=== PATIENT | male | born 1945 | race Caucasian/White ===

== ENCOUNTER → 2023-09-06 10:06 | Outpatient (BNVA) | payer MEDICARE, SELFPAY | PROVIDERS: Family Provider Nurse Practitioner Family; PCP Nurse Practitioner Family; Visit Provider Nurse Practitioner | DX: R39.9 Unspecified symptoms and signs involving the genitourinary system (principal); N30.01 Acute cystitis with hematuria | CPT/HCPCS: 81000; 87077; 87086; 87184 ==

== ENCOUNTER → 2023-09-15 09:00 | Outpatient (BNVA) | payer MEDICARE, SELFPAY | PROVIDERS: Family Provider Nurse Practitioner Family; PCP Nurse Practitioner Family; Visit Provider Family Medicine | DX: Z23 Encounter for immunization (principal); M19.031 Primary osteoarthritis, right wrist; M19.032 Primary osteoarthritis, left wrist; E66.9 Obesity, unspecified; M54.50 Low back pain, unspecified; M25.512 Pain in left shoulder; R30.0 Dysuria; Z12.11 Encounter for screening for malignant neoplasm of colon | CPT/HCPCS: 80053; 80061; 85025 ==

== ENCOUNTER → 2023-10-11 11:23 | Outpatient (BNVA) | payer MEDICARE, SELFPAY | PROVIDERS: Family Provider Nurse Practitioner Family; PCP Family Medicine; Visit Provider Family Medicine | DX: R39.9 Unspecified symptoms and signs involving the genitourinary system (principal); R30.0 Dysuria | CPT/HCPCS: 81000; 87086 ==

== ENCOUNTER 2024-02-18 07:25 | Emergency (ER) | payer MEDICARE, SELFPAY ==
[2024-02-18 07:30] VITALS: BP 144/90; PULSE 82; RESP 18; TEMP 36.4; O2SAT 97; BMI 33.0
--- NOTE | 2024-02-18 07:34 | CTR_ITS ---
PROCEDURE INFORMATION: Exam: CT Head Without Contrast Exam date and time: 02/18/2024 8:07 AM Age: 78 years old Clinical indication: Pain; Headache not specified; Additional info: Persistent headache. No history of recent trauma or surgery is provided. TECHNIQUE: Imaging protocol: Computed tomography of the head without contrast. 302image(s) are provided. Radiation optimization: All CT scans at this facility use at least one of these dose optimization techniques: automated exposure control; mA and/or kV adjustment per patient size (includes targeted exams where dose is matched to clinical indication); or iterative reconstruction. Other technique: Axial images are available with sagittal and coronal reconstruction views. Automated dose exposure control is utilized. The DLP is 1119.48. COMPARISON: No relevant prior studies available. RADIATION DOSE METRICS: Total DLP (mGy-cm): 1119.48 FINDINGS: Brain: There are moderate cerebral atrophic changes overall.There are chronic periventricular white matter changes present.There are central lacunar changes demonstrated.Partially empty sella variant is demonstrated.No mass effect or layering hemorrhage is appreciated. Gilliam, white matter differentiation appears maintained. Cerebral ventricles: No hydrocephalus is appreciated. Paranasal sinuses: There is some chronic appearing cortical thickening suggestive of chronic sinusitis related sequela of the right maxillary sinus. No significant mucosal thickening or fluid level at this level is currently appreciated. Mastoid air cells: The mastoid air cells appear well-aerated overall. Auditory system: There appears to be some filling possibly cerumen of the external auditory canals. Orbital cavities: Symmetric appearance of the orbital soft tissues is demonstrated. Bones/joints: Osseous alignment is maintained. No displaced fracture or dislocation is appreciated. 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 Soft tissues: No radiopaque foreign body or subcutaneous emphysema is appreciated. Vasculature: Atherosclerotic vascular changes are demonstrated. CT/CT head wo con* [id number] IMPRESSION: 1. No mass effect, layering hemorrhage or hydocephalus is demostrated. No acute intracranial changes are appreciated. 2. There is evidence of chronic sinusitis related sequela with chronic appearing cortical thickening of the right maxillary sinus included portion. No significant mucosal thickening or layering fluid levels are currently appreciated.
--- NOTE | 2024-02-18 07:35 | ED_ITS ---
HPI - Headache 2 General: Chief Complaint: Headache Stated Complaint: headache Time Seen by Provider: 02/18/24 07:27 Source: patient Mode of arrival: ambulatory History of Present Illness: 78-year-old male presents emergency room with complaint of headache. Is been intermittent for the last 2 weeks no head trauma he is not on any anticoagulants. He was seen in walk-in clinic within the last week and given steroids and ketorolac it improved some but that recurred. He has not had any nausea or vomiting no difficulty with speech swallowing no ataxia. MD elicited complaint: headache Associated symptoms: Deny chest pain, confusion, fever(s) or rash Review of Systems 2 Const: Denies: fever(s) or chills Card: Denies: chest pain Resp: Denies: dyspnea GI: Denies: abdominal pain : Denies: dysuria, urinary frequency or urinary urgency Musc: Denies: neck pain or back pain Skin/Breast: Denies: rash Neuro: Reports: headache(s); Denies: numbness in extremities, weakness in extremities, sensory changes, lack of coordination, difficulty walking, frequent falls, vertigo, confusion or Slurred speech present PFSH ED 2 PFSH: Surgical History History of kidney surgery ruptured kidney repaired Family History Mother Cancer, Onset Age: 85 Colon Father Cancer, Onset Age: 84 Bladder Brother Cancer, Onset Age: 82 lung Other Lung disease Stroke Denies family history of Diabetes CAD (coronary artery disease) Autoimmune disease Bipolar disorder Clotting disorder Depression TIA (transient ischemic attack) Heart disease Hyperthyroidism Hypothyroidism Chronic kidney disease (CKD) Schizophrenia Hypertension Social History Smoking and tobacco/nicotine status: former use of tobacco/nicotine Alcohol intake: never Substance/Drug Use: never Lives independently: Yes Marital status: Number of children: 2 Current occupational status: retired Special sharri needs: No Agree to transfusion: Yes Physical Exam 2 Const: COMMON NORMALS: no acute distress GENERAL APPEARANCE: cooperative and comfortable ORIENTATION/CONSCIOUSNESS: Yes awake, Yes oriented to person, Yes oriented to place and Yes oriented to time HENMT: COMMON NORMALS: normocephalic, atraumatic and hearing grossly normal bilaterally HEAD & SCALP: normocephalic and atraumatic Resp: COMMON NORMALS: normal respiratory effort, No retractions, No use of accessory muscles and clear to auscultation bilaterally AUSCULTATION: clear to auscultation bilaterally Cardio: COMMON NORMALS: regular rate, regular rhythm and No murmurs present (Cardio) RATE: regular rate RHYTHM: regular rhythm GI: COMMON NORMALS: Soft to palpation and No hepatosplenomegaly present A USCULTATION: Yes normoactive bowel sounds PALPATION: Yes Soft to palpation, No Tenderness to palpation present (GI), No Guarding due to palpation present (GI) and Yes No hepatosplenomegaly present Extremity: COMMON NORMALS: normal to inspection, capillary refill normal, no clubbing, cyanosis or edema, no calf tenderness and no pedal edema Neuro: SENSORIUM/ORIENTATION: Yes oriented to person, Yes oriented to place and Yes oriented to time OTHER: Normal neurologic exam with no focal neurologic deficits noted. Reviewed NIH exam done at bedside this did not show abnormality Skin: COMMON NORMALS: no rashes or lesions noted GENERAL SKIN EXAM: no rashes or lesions noted Course 2 Vital Signs: Vital signs: Vital Signs Temperature 97.6 F 02/18/24 07:30 Pulse Rate 72 02/18/24 09:21 Respiratory Rate 15 02/18/24 09:21 Blood Pressure 131/59 02/18/24 09:21 Pulse Oximetry 94 02/18/24 09:21 Oxygen Delivery Me thod Room Air 02/18/24 09:21 MDM - Headache Medical Decision Making CT of the head did not show any acute abnormality. There is some chronic sinus changes but no acute sinusitis. Will discharge patient home can use Phenergan for recurrent headaches he did have good relief with Depacon given here. If symptoms persist follow-up with primary care for possible referral to ENT or neurology as felt appropriate Differential Diagnosis Likely migraine, tension headache and headache Medical Records I reviewed the patient's medical records. Lab Data I reviewed the patient's lab results. 02/18/24 07:48 02/18/24 07:[address] 02/18/24 07:34 IMPRESSION: 1. No mass effect, layering hemorrhage or hydocephalus is demostrated. No acute intracranial changes are appreciated. 2. There is evidence of chronic sinusitis related sequela with chronic appearing cortical thickening of the right maxillary sinus included portion. No significant mucosal thickening or layering fluid levels are currently appreciated. Laboratory Results WBC 10.83 10^3/uL (3.29-11.43) 02/18/24 07:48 RBC 5.40 10^6/uL (3.85-5.65) 02/18/24 07:48 Hgb 15.50 g/dL (11.27-16.99) 02/18/24 07:48 Hct 47.7 % (37-53) 02/18/24 07:48 MCV 88.3 fl (82-101) 02/18/24 07:48 MCH 28.7 pg (27-33) 02/18/24 07:48 MCHC 32.5 g/dL (30-55) 02/18/24 07:48 RDW 12.9 % (12.1-15.1) 02/18/24 07:48 Plt Count 307 10^3/cmm (157-399) 02/18/24 07:48 MPV 9.0 fL (7.4-10.4) 02/18/24 07:48 Neut % (Auto) 69.1 % 02/18/24 07:48 Lymph % (Auto) 14.1 % 02/18/24 07:48 Clark % (Auto) 10.0 % 02/18/24 07:48 Eos % (Auto) 3.0 % 02/18/24 07:48 Baso % (Auto) 0.8 % 02/18/24 07:48 Neut # (Auto) 7.49 10^3/uL (1.8-7.7) 02/18/24 07:48 Lymph # (Auto) 1.5 10^3/uL (0.8-4.8) 02/18/24 07:48 Clark # (Auto) 1.1 10^3/uL (0.2-0.9) H 02/18/24 07:48 Eos # (Auto) 0.3 10^3/uL (0.0-0.8) 02/18/24 07:48 Baso # (Auto) 0.1 10^3/uL (0.0-0.1) 02/18/24 07:48 Nucleated RBC % (auto) 0 % 02/18/24 07:48 Nucleated RBCs # 0.0 /100WBC 02/18/24 07:48 Sodium 138 mmol/L (136-145) 02/18/24 07:48 Potassium 4.2 mmol/L (3.5-5.1) 02/18/24 07:48 Chloride 103 mmol/L (98-107) 02/18/24 07:48 Carbon Dioxide 23 mmol/L (22-29) 02/18/24 07:48 Anion Gap 16.2 (5-19) 02/18/24 07:48 BUN 20 mg/dL (8-23) 02/18/24 07:48 Creatinine 1.1 mg/dL (0.7-1.2) 02/18/24 07:48 GFR Calculation Not Reportable 02/18/24 07:48 Glucose 121 mg/dL (65-115) H 02/18/24 07:48 Calculated Osmolality 290 mOsm/kg (285-295) 02/18/24 07:48 Calcium 9.8 mg/dL (8.5-10.5) 02/18/24 07:48 Total Bilirubin 0.5 mg/dL (0.15-1.2) 02/18/24 07:48 AST 15 U/L (0-40) 02/18/24 07:48 ALT 16 U/L (0-41) 02/18/24 07:48 Alkaline Phosphatase 79 U/L (40-130) 02/18/24 07:48 Total Protein 7.2 g/dL (6.6-8.7) 02/18/24 07:48 Albumin 3.9 g/dL (3.5-5.2) 02/18/24 07:48 Globulin 3.3 g/dL (1.3-4.6) 02/18/24 07:48 All radiology interpretation(s) finalized by discharge Discharge Plan Discharge Patient Disposition: Home Clinical Impression: Headache Condition: Stable Prescriptions: New promethazine 25 mg tablet 25 mg PO Q6H PRN (Reason: headache) Qty: 20 0RF No Action ibuprofen 200 mg Tablet 1,000 mg PO Q6H PRN (Reason: Pain) Discharge Orders: Discharge ED (Routine); Ordered 02/18/24 Ordered By: Axel Bar Referrals: Alejandro Sommers MD [Primary Care Provider] - Discharge Diet: Usual diet Discharge Activity: Resume usual activity Patient Instructions: Opioid Safety, Pain Management Activity Restrictions/Additional Instructions: Thank you for choosing [facility] for your healthcare needs today. Please realize this is an emergency room and that we are providing you with a medical screening exam and this may not be complete and all inclusive of all the testing and or work up that you may need to determine your ailment or severity of your illness. It is very important that you follow up as instructed or that you return to the Emergency Department should you have concerns or if your condition changes or worsens in any way. You were seen today with complaints of a headache. Your CT of your head did not show any acute changes. It did show some chronic sinus changes. If your headaches persist follow-up with your primary care doctor for further evaluation including possible referral to ENT and neurology as felt appropriate Coding Level of Care Code ED Marketing Traffic Coordinator for Vipin Perez
--- NOTE | 2024-02-18 07:40 | ECG_ITS ---
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 Measurements Intervals [place] Rate: 82 P: 46 [place]: 145 QRS: 34 QRSD: 84 T: 40 QT: 355 QTc: 415 Interpretive Statements SINUS RHYTHM No previous ECG available for comparison Electronically Signed On 02-18-2024 15:52:02 CDT by Jeronimo Guido M.D. [id number]
--- NOTE | 2024-02-18 07:49 | PC.PHAR ---
pt states he takes care of his own medications-pt states stop taking mobic 3 weeks ago ext shows last filled mobic 15mg daily filled on 01/06/24 90d/s-pt states started taking 1000mg of ibuprofen and hasnt taken for a week pt states the ibuprofen started to make him sick
[2024-02-18 08:07] LABS: Basophils # 0.1 10^3/uL (0.0-0.1); Basophils % 0.8 %; Eosinophils # 0.3 10^3/uL (0.0-0.8); Hematocrit 47.7 % (37-53); Lymphocytes # 1.5 10^3/uL (0.8-4.8); Lymphocytes % 14.1 %; Mean Corpuscular HGB Conc 32.5 g/dL (30-55); Mean Corpuscular Hemoglobin 28.7 pg (27-33); Mean Corpuscular Volume 88.3 fl (82-101); Monocytes # 1.1 10^3/uL (0.2-0.9); Neutrophils # 7.49 10^3/uL (1.8-7.7); Neutrophils % 69.1 %; Nucleated Red Blood Cells % 0 %; Platelet Count 307 10^3/cmm (157-399); Red Cell Distribution Width 12.9 % (12.1-15.1); White Blood Count 10.83 10^3/uL (3.29-11.43)
[2024-02-18 08:23] LABS: Alanine Aminotransferase 16 U/L (0-41); Albumin Level 3.9 g/dL (3.5-5.2); Alkaline Phosphatase 79 U/L (40-130); Anion Gap 16.2 (5-19); Aspartate Amino Transferase 15 U/L (0-40); Blood Urea Nitrogen 20 mg/dL (8-23); Calcium 9.8 mg/dL (8.5-10.5); Carbon Dioxide 23 mmol/L (22-29); Chloride 103 mmol/L (98-107); Creatinine Clr Calc Pharmacy 62.9844; Globulin 3.3 g/dL (1.3-4.6); Glucose 121 mg/dL (65-115); Osmolality Calculated 290 mOsm/kg (285-295); Potassium 4.2 mmol/L (3.5-5.1); Sodium 138 mmol/L (136-145); Total Bilirubin 0.5 mg/dL (0.15-1.2); Total Protein 7.2 g/dL (6.6-8.7)
[2024-02-18] MEDS: valproic acid inj 500 MG in sodium chloride 0.9% 50 ML 55 MG IV (08:24)
[2024-02-18 08:26] VITALS: BP 144/90; PULSE 78; O2SAT 98
[2024-02-18] MEDS: ketorolac 30 mg/mL INJ 15 MG IVP (09:19)
[2024-02-18] MEDS: metoclopramide 5 mg/mL SDV 2 mL 10 MG IVP (09:20)
[2024-02-18 09:21] VITALS: BP 131/59; PULSE 72; RESP 15; O2SAT 94
[2024-02-18 11:10] VITALS: BP 137/77; PULSE 74; O2SAT 94
== END 2024-02-18 11:11 | disposition home or self-care (01) ==
PROVIDERS: Emergency Provider Family Medicine; PCP Family Medicine
DX: R51.9 Headache, unspecified (principal); Z87.891 Personal history of nicotine dependence
CPT/HCPCS: 70450; 80053; 85025; 93005; 96365; 96375; 99285; J1885; J2765; J3490

== ENCOUNTER 2024-05-16 16:32 | Emergency (ER) | payer MEDICARE, SELFPAY ==
--- NOTE | 2024-05-16 16:37 | CTR_ITS ---
PROCEDURE INFORMATION: Exam: CT Head Without Contrast Exam date and time: 05/16/2024 4:31 PM Age: 78 years old Clinical indication: Stroke-like symptoms; Other: See below; Additional info: Symptoms of acute stroke TECHNIQUE: Imaging protocol: Computed tomography of the head without contrast. Radiation optimization: All CT scans at this facility use at least one of these dose optimization techniques: automated exposure control; mA and/or kV adjustment per patient size (includes targeted exams where dose is matched to clinical indication); or iterative reconstruction. Other technique: STROKE PROTOCOL was implemented. COMPARISON: CT head wo con* [id number] 02/18/2024 8:07 AM RADIATION DOSE METRICS: Total DLP (mGy-cm): 1083 FINDINGS: Brain: No hemorrhage. No edema. Moderate diffuse cerebral atrophy and mild sequela of chronic small vessel ischemic disease. No mass effect. Cerebral ventricles: No ventriculomegaly. Paranasal sinuses: Visualized sinuses are unremarkable. No fluid levels. Mastoid air cells: Visualized mastoid air cells are well aerated. Bones: Unremarkable. No acute fracture. Soft tissues: Unremarkable. CT/CT head thrombolytic [id number] IMPRESSION: No acute intracranial abnormality. ASSESSMENT: ASPECTS ([place] Stroke Program Early CT Score) is 10.
[2024-05-16 16:44] VITALS: BP 174/89; PULSE 72; RESP 18; TEMP 36.7; O2SAT 96; BMI 33.6
--- NOTE | 2024-05-16 16:44 | ED_ITS ---
HPI - Neuro Symptoms/Deficit 2 General: Chief Complaint: Neuro Symptoms/Deficit Stated Complaint: Stroke Time Seen by Provider: 05/16/24 16:37 Source: patient and EMS Limitations: no limitations History of Present Illness: 78-year-old male has had a history of he adaches in past states that today at 330 started having a headache states that he is having difficulty swallowing along with difficulty walking with right-sided numbness and weakness. He states this lasted roughly an hour called EMS and his symptoms have since completely resolved. Denies any numbness weakness he is ambulatory here states his headaches improved as well. Denies any fevers. Associated symptoms: Reports headache(s); Deny chest pain, nausea or vomiting Review of Systems 2 Const: Denies: fever(s), chills, body aches or change in appetite Eyes: Denies: blurry vision or eye discomfort ENMT: Denies: throat pain or dental pain Card: Denies: chest pain Resp: Denies: dyspnea GI: Denies: abdominal pain, nausea, vomiting or diarrhea Musc: Denies: neck pain or back pain Skin/Breast: Denies: rash Neuro: Reports: headache(s), numbness in extremities and weakness in extremities PFSH ED 2 PFSH: Surgical History History of kidney surgery ruptured kidney repaired Family History Mother Cancer, Onset Age: 85 Colon Father Cancer, Onset Age: 84 Bladder Brother Cancer, Onset Age: 82 lung Other Lung disease Stroke Denies family history of Diabetes CAD (coronary artery disease) Autoimmune disease Bipolar disorder Clotting disorder Depression TIA (transient ischemic attack) Heart disease Hyperthyroidism Hypothyroidism Chronic kidney disease (CKD) Schizophrenia Hypertension Social History Smoking and tobacco/nicotine status: former use of tobacco/nicotine Alcohol intake: never Substance/Drug Use: never Lives independently: Yes Marital status: Number of children: 2 Current occupational status: retired Special sharri needs: No Agree to transfusion: Yes NIH stroke score 2 NIHSS: Level Of Consciousness - 1a: 0 Level Of Consciousness Questions - 1b: Both Correct Level Of Consciousness Commands - 1c: Both Correct Best Gaze - 2: Normal Visual Garcia - 3: No Visual Loss Facial Palsy - 4: N ormal Motor Arm Right - 5: No Drift Motor Arm Left - 5: No Drift Motor Leg Right - 6: No Drift Motor Leg Left - 6: No Drift Limb Ataxia - 7: A bsent Sensory - 8: Normal Best Language - 9: No Aphasia Dysarthia - 10: Normal Extinction And Inattention - 11: 0 Score: Total Score: 0 Physical Exam 2 Const: COMMON NORMALS: no acute distress, patient oriented x3 and healthy appearing HENMT: COMMON NORMALS: normocephalic and atraumatic HEAD & SCALP: n ormocephalic and atraumatic Eye: COMMON NORMALS: Equal, round and reactive pupils present and EOMs intact bilaterally PUPIL: Yes Equal, round and reactive pupils present Neck/C-Spine: COMMON NORMALS: full ROM and supple Chest: COMMONS NORMALS: normal inspection of the chest and normal palpation of entire chest wall Resp: COMMON NORMALS: normal respiratory effort, No retractions, No use of accessory muscles and clear to auscultation bilaterally AUSCULTATION: clear to auscultation bilaterally Cardio: COMMON NORMALS: regular rate, regular rhythm and No murmurs present (Cardio) RATE: regular rate RHYTHM: regular rhythm GI: COMMON NORMALS: Normal to inspection, nondistended, normoactive bowel sounds present, Soft to palpation, non-tender and no masses PALPATION: Yes Soft to palpation Extremity: COMMON NORMALS: normal to inspection and full ROM Neuro: COMMON NORMALS: patient oriented x3, moves all extremities and no focal motor deficits CRANIAL NERVES: Yes CN normal except as noted SPEECH: s peech normal GAIT: Yes Normal gait present MOTOR EXAM: 5/5 motor strength present throughout Psych: COMMON NORMALS: mental status grossly normal, Normal thought process present, cooperative and speech normal SPEECH: Yes normal speech THOUGHT PROCESS: Normal thought process present Skin: COMMON NORMALS: no rashes or lesions noted and no wounds GENERAL SKIN EXAM: no rashes or lesions noted Course 2 Vital Signs: Vital signs: Vital Signs Temperature 98.1 F 05/16/24 16:44 Pulse Rate 76 05/16/24 17:42 Respiratory Rate 18 05/16/24 16:44 Blood Pressure 151/95 05/16/24 17:42 Pulse Oximetry 97 05/16/24 17:42 Oxygen Delivery Me thod Room Air 05/16/24 16:44 MDM - Neuro Symptoms/Deficit Medical Decision Making Patient presents here with symptoms consistent with a TIA symptoms of all resolved I did recommend admission to him he states he feels improved and does not want to stay. I informed him that I would like to admit him and work him up further he is refusing. Will discharge at this time we will start him on a baby aspirin and statin will involve neurology informed if he has any more symptoms he is to return immediately he understands agrees to plan Medical Records I reviewed the patient's medical records. Lab Data I reviewed the patient's lab results. 05/16/24 16:41 05/16/24 16:[address] 05/16/24 16:37 IMPRESSION: No acute intracranial abnormality. ASSESSMENT: ASPECTS ([place] Stroke Program Early CT Score) is 10. Laboratory Results WBC 12.70 10^3/uL (3.29-11.43) H 05/16/24 16:41 RBC 5.02 10^6/uL (3.85-5.65) 05/16/24 16:41 Hgb 14.70 g/dL (11.27-16.99) 05/16/24 16:41 Hct 44.9 % (37-53) 05/16/24 16:41 MCV 89.4 fl (82-101) 05/16/24 16:41 MCH 29.3 pg (27-33) 05/16/24 16:41 MCHC 32.7 g/dL (30-55) 05/16/24 16:41 RDW 12.9 % (12.1-15.1) 05/16/24 16:41 Plt Count 289 10^3/cmm (157-399) 05/16/24 16:41 MPV 8.9 fL (7.4-10.4) 05/16/24 16:41 Neut % (Auto) 82.5 % 05/16/24 16:41 Lymph % (Auto) 7.6 % 05/16/24 16:41 [place] % (Auto) 6.0 % 05/16/24 16:41 Eos % (Auto) 0.3 % 05/16/24 16:41 Baso % (Auto) 0.5 % 05/16/24 16:41 Neut # (Auto) 10.48 10^3/uL (1.8-7.7) H 05/16/24 16:41 Lymph # (Auto) 1.0 10^3/uL (0.8-4.8) 05/16/24 16:41 [place] # (Auto) 0.8 10^3/uL (0.2-0.9) 05/16/24 16:41 Eos # (Auto) 0.0 10^3/uL (0.0-0.8) 05/16/24 16:41 Baso # (Auto) 0.1 10^3/uL (0.0-0.1) 05/16/24 16:41 Nucleated RBC % (auto) 0 % 05/16/24 16:41 Nucleated RBCs # 0.0 /100WBC 05/16/24 16:41 PT 13.40 SECONDS (12.1-14.9) 05/16/24 16:41 INR 0.99 (0.8-1.2) 05/16/24 16:41 APTT 23.7 SECONDS (23.9-36.7) L 05/16/24 16:41 Sodium 139 mmol/L (136-145) 05/16/24 16:41 Potassium 4.8 mmol/L (3.5-5.1) 05/16/24 16:41 Chloride 105 mmol/L (98-107) 05/16/24 16:41 Carbon Dioxide 25 mmol/L (22-29) 05/16/24 16:41 Anion Gap 13.8 (5-19) 05/16/24 16:41 BUN 22 mg/dL (8-23) 05/16/24 16:41 Creatinine 1.2 mg/dL (0.7-1.2) 05/16/24 16:41 GFR Calculation Not Reportable 05/16/24 16:41 Glucose 147 mg/dL (65-115) H 05/16/24 16:41 POC Glucose 140 mg/dL (70-110) H 05/16/24 17:11 Calculated Osmolality 294 mOsm/kg (285-295) 05/16/24 16:41 Calcium 9.9 mg/dL (8.5-10.5) 05/16/24 16:41 Total Bilirubin 0.2 mg/dL (0.15-1.2) 05/16/24 16:41 AST 16 U/L (0-40) 05/16/24 16:41 ALT 19 U/L (0-41) 05/16/24 16:41 Alkaline Phosphatase 74 U/L (40-130) 05/16/24 16:41 Total Protein 7.4 g/dL (6.6-8.7) 05/16/24 16:41 Albumin 4.0 g/dL (3.5-5.2) 05/16/24 16:41 Globulin 3.4 g/dL (1.3-4.6) 05/16/24 16:41 Urine Color Yellow (Yellow) 05/16/24 17:11 Urine Appearance Clear (CLEAR) 05/16/24 17:11 Urine pH 6 (5-7) 05/16/24 17:11 Ur Specific [place] 1.015 (1.005-1.030) 05/16/24 17:11 Urine Protein Neg (Negative) 05/16/24 17:11 Urine Glucose (UA) Norm (Normal) 05/16/24 17:11 Urine Ketones Negative (Negative) 05/16/24 17:11 Urine Blood Neg (Negative) 05/16/24 17:11 Urine Nitrate Negative (Negative) 05/16/24 17:11 Urine Bilirubin Neg (Negative) 05/16/24 17:11 Urine Urobilinogen Norm mg/dL (Negative) 05/16/24 17:11 Ur Leukocyte Esterase Negative (Negative) 05/16/24 17:11 Urine Opiates Screen Negative ng/mL (Negative) 05/16/24 17:11 Ur Barbiturates Screen Negative ng/mL (Negative) 05/16/24 17:11 Ur Phencyclidine Scrn Negative ng/mL (Negative) 05/16/24 17:11 Ur Amphetamines Screen Negative ng/mL (Negative) 05/16/24 17:11 U Benzodiazepines Scrn Negative ng/mL (Negative) 05/16/24 17:11 Urine Cocaine Screen Negative ng/mL (Negative) 05/16/24 17:11 U Marijuana (THC) Screen Negative ng/mL (Negative) 05/16/24 17:11 All radiology interpretation(s) finalized by discharge EKG Data EKG 1: I personally reviewed and interpreted this EKG as follows: EKG interpretation date: 05/16/24 EKG interpretation time: 16:46 Interpretation: nsr hr [address] or t wave abnormalities qrs 82 qtc 396 Discharge Plan Discharge Patient Disposition: Home Clinical Impression: Transient cerebral ischemia, Headache Condition: Stable Prescriptions: New aspirin 81 mg capsule 81 mg PO DAILY Qty: 30 0RF atorvastatin 20 mg tablet 20 mg PO DAILY Qty: 30 0RF No Action sumatriptan succinate 50 mg tablet See Rx Instructions PO .COMPLEX Qty: 10 0RF Rx Instructions: take 1 tab at onset of headache; if no relief may repeat 1 tab after at least 2 hrs; max = 4 tabs/24 hr PO ibuprofen 200 mg Tablet 1,000 mg PO Q6H PRN (Reason: Pain) promethazine 25 mg tablet 25 mg PO Q6H PRN (Reason: headache) Qty: 20 0RF Discharge Orders: Discharge ED (Routine); Ordered 05/16/24 Ordered By: Kenney Nelson Referrals: Katarina Shen MD [Physician] - 1-3 days Alejandro Sommers MD [Primary Care Provider] - Discharge Diet: Advance as tolerated Discharge Activity: Resume usual activity Patient Instructions: Transient Ischemic Attack (ED) Coding Level of Care Code ED Entry Engineer for Vipin Perez
--- NOTE | 2024-05-16 16:46 | ECG_ITS ---
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 Measurements Intervals [place] Rate: 76 P: 55 CT: 147 QRS: 51 QRSD: 82 T: 57 QT: 365 QTc: 413 Interpretive Statements SINUS RHYTHM Compared to ECG 02/18/2024 07:40:04 No significant changes Electronically Signed On 05-18-2024 13:34:03 CDT by Issac Boo M.D. [id number]
[2024-05-16 16:48] LABS: Glucose Point of Care 140 mg/dL (70-110)
[2024-05-16 16:53] LABS: Basophils # 0.1 10^3/uL (0.0-0.1); Basophils % 0.5 %; Eosinophils % 0.3 %; Hematocrit 44.9 % (37-53); Lymphocytes % 7.6 %; Mean Corpuscular HGB Conc 32.7 g/dL (30-55); Mean Corpuscular Hemoglobin 29.3 pg (27-33); Mean Corpuscular Volume 89.4 fl (82-101); Mean Platelet Volume 8.9 fL (7.4-10.4); Monocytes # 0.8 10^3/uL (0.2-0.9); Neutrophils # 10.48 10^3/uL (1.8-7.7); Neutrophils % 82.5 %; Nucleated Red Blood Cells % 0 %; Platelet Count 289 10^3/cmm (157-399); Red Blood Count 5.02 10^6/uL (3.85-5.65); Red Cell Distribution Width 12.9 % (12.1-15.1)
[2024-05-16 17:08] LABS: INR 0.99 (0.8-1.2); Partial Thromboplastin Time 23.7 SECONDS (23.9-36.7)
[2024-05-16 17:10] LABS: Alanine Aminotransferase 19 U/L (0-41); Alkaline Phosphatase 74 U/L (40-130); Anion Gap 13.8 (5-19); Aspartate Amino Transferase 16 U/L (0-40); Blood Urea Nitrogen 22 mg/dL (8-23); Calcium 9.9 mg/dL (8.5-10.5); Carbon Dioxide 25 mmol/L (22-29); Chloride 105 mmol/L (98-107); Creatinine Clr Calc Pharmacy 58.2732; Globulin 3.4 g/dL (1.3-4.6); Glucose 147 mg/dL (65-115); Osmolality Calculated 294 mOsm/kg (285-295); Potassium 4.8 mmol/L (3.5-5.1); Sodium 139 mmol/L (136-145); Total Bilirubin 0.2 mg/dL (0.15-1.2); Total Protein 7.4 g/dL (6.6-8.7)
[2024-05-16 17:14] LABS: Glucose Point of Care 140 mg/dL (70-110)
[2024-05-16 17:28] LABS: Add Urine Microscopic? NO; Charge for UA Resulting for Rev
[2024-05-16 17:39] LABS: Bilirubin Urine Neg (Negative); Blood Urine Neg (Negative); Glucose Urine UA Norm (Normal); Ketones Urine Negative (Negative); Leukocyte Esterase Urine Negative (Negative); Nitrate Urine Negative (Negative); Protein Urine Neg (Negative); Specific Gravity, Urine 1.015 (1.005-1.030); Urine Appearance Clear (CLEAR); Urine Color Yellow (Yellow); Urobilinogen Urine Norm (Negative); pH Urine 6 (5-7)
[2024-05-16 17:42] VITALS: BP 151/95; PULSE 76; O2SAT 97
[2024-05-16 17:47] LABS: Amphetamines Screen Urine Negative (Negative); Barbiturates Screen Urine Negative (Negative); Benzodiazepines Screen Urine Negative (Negative); Cocaine Screen Urine Negative (Negative); Opiate Screen Urine Negative (Negative); PCP Screen Urine Negative (Negative); THC Screen Urine Negative (Negative)
--- NOTE | 2024-05-16 17:59 | PC.SOCIAL ---
Neuro F/u Referral request sent to neurology for appt.
[2024-05-16 18:01] VITALS: BP 151/95; PULSE 76; O2SAT 97
== END 2024-05-16 18:02 | disposition home or self-care (01) ==
PROVIDERS: Emergency Provider Emergency Medicine; PCP Family Medicine
DX: G45.9 Transient cerebral ischemic attack, unspecified (principal); R51.9 Headache, unspecified; Z87.891 Personal history of nicotine dependence
CPT/HCPCS: 36415; 36416; 70450; 80053; 80306; 81003; 82962; 85025; 85610; 85730; 93005; 99284

== ENCOUNTER → 2024-06-05 07:41 | Outpatient (BNVA) | payer MEDICARE, SELFPAY | PROVIDERS: PCP Family Medicine; Visit Provider Psychiatry & Neurology Neurology | DX: G45.9 Transient cerebral ischemic attack, unspecified (principal); G43.909 Migraine, unspecified, not intractable, without status migrainosus; E55.9 Vitamin D deficiency, unspecified; R53.83 Other fatigue; G45.1 Carotid artery syndrome (hemispheric); R53.1 Weakness | CPT/HCPCS: 36415; 82306; 84439; 84443; 84481; 86160; 86162; 86235; 86255; 86376; 99203 ==

== ENCOUNTER 2024-06-17 11:45 | Observation (INO) | payer MEDICARE, SELFPAY ==
[2024-06-17] VITALS (7 sets, daily range): BP systolic 134–149; BP diastolic 66–80; PULSE 72–81; RESP 17–18; TEMP 36.7–36.9; O2SAT 94–98
--- NOTE | 2024-06-17 14:06 | P.HP_ITS ---
Providers/Chief Complaint Admitting Physician: Andra Maradiaga MD Primary Care Provider: Alejandro Sommers MD History of Present Illness Jagdish Bush is a 78 year old male with history of TIA who recently saw neurology on 06/05. He complained of occipital Headaches for last 2 months which have not resolved. He takes a lot of ibuprofen when he has headaches. He is also had history of bilateral cataract surgery in the past. He was recommended to have head MRI to assess for stroke, carotid Dopplers, echo and vasculitis workup with thyroid profile vitamin D. He was asked to discontinue NSAIDs, ibuprofen and placed on aspirin and Crestor. Unsure if patient has had workup done so far or not. Today patient presents to our hospital from [facility] for similar complaints of right-sided numbness of face and weakness with speech difficulty and blurred vision. By the time he has been transferred here all the symptoms have resolved and he is back to his normal self. Neurological exam is normal at this time. He is a poor historian. He does not know his home medications but does say he takes a baby aspirin?cholesterol tablet. He does not have any complaints at this time. He has been transferred here for TIA workup. Denies smoking alcohol or other drug use Medications/Allergies Home Medications Medication Instructions Recorded Confirmed Last Taken Type promethazine 25 mg tablet 25 mg PO Q6H PRN headache #20 tabs 02/18/24 06/05/24 Unknown Rx aspirin 81 mg capsule 81 mg PO DAILY #30 caps 05/16/24 06/05/24 Unknown Rx atorvastatin 20 mg tablet 20 mg PO DAILY #30 tabs 05/16/24 06/05/24 Unknown Rx rosuvastatin 10 mg tablet 10 mg PO DAILY #30 tabs 06/05/24 06/05/24 Unknown Rx cholecalciferol (vitamin D3) 1,250 50,000 unit PO ONCE #14 caps 06/08/24 Unknown Rx mcg (50,000 unit) capsule Allergies Allergy/AdvReac Type Severity Reaction Status Date / Time No Known Allergies Allergy Verified 06/05/24 09:00 PFSH Acute PFSH: Surgical History History of kidney surgery ruptured kidney repaired Family History Mother Cancer, Onset Age: 85 Colon Father Cancer, Onset Age: 84 Bladder Brother Cancer, Onset Age: 82 lung Other Lung disease Stroke Denies family history of Diabetes CAD (coronary artery disease) Autoimmune disease Bipolar disorder Clotting disorder Depression TIA (transient ischemic attack) Heart disease Hyperthyroidism Hypothyroidism Chronic kidney disease (CKD) Schizophrenia Hypertension Social History Smoking and tobacco/nicotine status: former use of tobacco/nicotine Alcohol intake: never Substance/Drug Use: never Lives independently: Yes Marital status: Number of children: 2 Current occupational status: retired Special sharri needs: No Agree to transfusion: Yes Vitals/I&O/Wt Last Vital Signs Temp 98.0 F 06/17/24 12:30 Pulse 72 06/17/24 12:30 Resp 17 06/17/24 12:30 BP 138/80 06/17/24 12:30 Pulse Ox 98 06/17/24 12:30 O2 Del Method Room Air 06/17/24 12:30 06/16/24 06/17/24 06/17/24 22:59 06:59 14:59 Intake Total 220 / 220 Balance 220 / 220 Weight last 48 hrs Weight 98.94 kg Physical Exam Narrative: General: Alert oriented x3, patient seen sitting up in bed about to eat lunch HEENT: Normocephalic, atraumatic, EOMI, breathing room air Cardio: Regular rate rhythm, normal S1-S2, no murmurs Respiratory: Good bilateral air entry, no wheezes no rhonchi appreciated GI: Abdomen soft, nontender, nondistended, bowel sounds + Extremities: no edema, no cyanosis Neuro: non-focal A&P Assessment and plan (1) Obesity (BMI 30.0-34.9): (2) TIA involving left internal carotid artery: (3) Right sided weakness: Plan #TIA, reccurant #Non-compliant #Hx of headaches as per chart -Head CT was negative today at [facility]. Patient states that he had a test where he was given a medication into his vein which I assume was probably contrast CTA head and neck. No records have been sent over from [facility] at this time and have asked nursing staff to request for those.Pt does deny a headache today. ? Will check MRI in a.m. ? Placed on aspirin 81 daily, Plavix daily, atorvastatin 80 ? Check hemoglobin A1c, TSH, vasculitis workup as per neurorecommendations. ? Patient seems to be noncompliant as he has not had any testing done that was recommended by neuro 2 weeks ago. ? At this time he is has a nonfocal neuroexam. ? Check nursing dysphagia screen, PT -Placed on telemetry. Patient may benefit from an event monitor at discharge. -Check echo Full code Due to prophylaxis: SCDs I would hold off on any pharmacological prophylaxis till initial labs come back Check baseline labs CBC, CMP, magnesium. No records were sent from [facility]. Attestations Medical Necessity Statement*: Observation admission for TIA workup. Diagnoses Obesity (BMI 30.0-34.9) E66.9 TIA involving left internal carotid artery G45.1 Right sided weakness R53.1
--- NOTE | 2024-06-17 14:12 | MRR_ITS ---
PROCEDURE INFORMATION: Exam: MR Head Without Contrast Exam date and time: 06/17/2024 3:18 PM Age: 78 years old Clinical indication: Pain; Numbness / parasthesia and weakness, facial; Headache not specified; Patient HX: Headache x 2 weeks, right facial numbness; Additional info: TIA TECHNIQUE: Imaging protocol: Magnetic resonance imaging of the head without contrast. COMPARISON: CT head thrombolytic [id number] 05/16/2024 4:31 PM FINDINGS: Brain: No acute infarct. No intracranial hemorrhage. No significant white matter disease. Cerebral ventricles: The ventricles and sulci are prominent in size compatible with mild atrophy. Bones: Unremarkable. Paranasal sinuses: Mild mucoperiosteal thickening is seen involving the bilateral maxillary sinuses. Mastoid air cells: Normal as visualized. No mastoid effusion. Orbital cavities: Orbits and globes are intact. Soft tissues: Unremarkable. MR/MR head wo con* [id number] IMPRESSION: No acute infarct.
--- NOTE | 2024-06-17 14:12 | USCV_ITS ---
Jagdish Bush Age: 78 Gender: M : 1945 Exam Date: 06/17/2024 16:21 Ordering Phys: Andra Maradiaga MD Technologist: Luis Manuel Fitch Exam Location: [facility] Indication: TIA BP: 138 / 80 HR: 71 Rhythm: Sinus Technical Quality: Suboptimal MEASUREMENTS (Male / Female) Normal Values 2D ECHO LV Diastolic Diameter PLAX 5.6 cm 4.2 - 5.9 / 3.9 - 5.3 cm IVS Diastolic Thickness 1.3 cm 0.6 - 1.0 / 0.6 - 0.9 cm IVS Systolic Thickness 1.5 cm LVPW Diastolic Thickness 1.6 cm 0.6 - 1.0 / 0.6 - 0.9 cm LVPW Systolic Thickness 1.9 cm LVOT Diameter 2.1 cm LV Ejection Fraction 2D Teich 66.8 % LV Ejection Fraction MOD 4C 71.4 % LV Ejection Fraction MOD 2C 54.0 % LV Ejection Fraction 2C AL 55.1 % LA Diameter 3.9 cm RA Systolic Volume 4C AL 55.6 ml RA Systolic Volume 4C MOD 55.5 ml LA Sys Volume AL 57.2 cm cubed LA Sys Volume Index AL 26.0 cm cubed/m squared Aorta at Sinotubular Diameter 2.3 cm IVC Diameter 2.0 cm M-MODE LA Ao Ratio MM 1.7 AV Cusp Separation MM 2.0 cm DOPPLER AV Peak Velocity 118.3 cm/s LVOT Peak Velocity 92.0 cm/s AV Area Cont Eq vti 2.6 cm squared AV Area Cont Eq pk 2.6 cm squared MV Peak Velocity 94.0 cm/s MV Area PHT 4.7 cm squared Mitral E to A Ratio 0.8 TV Peak Velocity 165.0 cm/s TR Peak Velocity 177.0 cm/s TR Peak Gradient 12.5 mmHg TR Mean Velocity 125.0 cm/s TR Mean Gradient 7.4 mmHg TR Velocity Time Integral 31.2 cm PV Peak Velocity 106.7 cm/s RV Ejection Time 0.3 s FINDINGS Left Ventricle Normal left ventricular size, systolic function and wall thickness, with no regional wall motion abnormalities. Grade I/IV diastolic dysfunction (abnormal relaxation filling pattern), normal to mildly elevated filling pressures. Left ventricular ejection fraction is estimated at 60 %. Right Ventricle Normal right ventricular size and systolic function. Right Atrium The right atrium is normal in size. Left Atrium The left atrium is normal in size. Mitral Valve Structurally normal mitral valve. Trace mitral valve regurgitation. Aortic Valve Structurally normal trileaflet aortic valve. No aortic valve stenosis. Trace aortic valve regurgitation. Tricuspid Valve Structurally normal tricuspid valve. No tricuspid valve regurgitation. Pulmonic Valve Pulmonic valve not well visualized. Mild pulmonary valve regurgitation. Pericardium Normal pericardium without effusion. Aorta Normal ascending aorta dimension. IVC Inferior vena cava not visualized. CONCLUSIONS Normal left ventricular size, systolic function and wall thickness, with no regional wall motion abnormalities. Grade I/IV diastolic dysfunction (abnormal relaxation filling pattern), normal to mildly elevated filling pressures. Left ventricular ejection fraction is estimated at 60 %. Structurally normal mitral valve. Trace mitral valve regurgitation. Structurally normal trileaflet aortic valve. No aortic valve stenosis. Trace aortic valve regurgitation. There are no prior echocardiogram studies to compare. Dr. Issac Boo MD (Electronically Signed) Final Date: 18 June 2024 07:53 S
[2024-06-17 14:40] LABS: Basophils % 0.5 %; Eosinophils # 0.3 10^3/uL (0.0-0.8); Eosinophils % 3.6 %; Lymphocytes # 1.1 10^3/uL (0.8-4.8); Lymphocytes % 14.1 %; Mean Corpuscular HGB Conc 32.4 g/dL (30-55); Mean Corpuscular Hemoglobin 29.1 pg (27-33); Mean Corpuscular Volume 89.6 fl (82-101); Mean Platelet Volume 9.3 fL (7.4-10.4); Monocytes # 0.7 10^3/uL (0.2-0.9); Neutrophils # 5.53 10^3/uL (1.8-7.7); Neutrophils % 71.4 %; Nucleated Red Blood Cells % 0 %; Platelet Count 201 10^3/cmm (157-399); Red Blood Count 5.02 10^6/uL (3.85-5.65); Red Cell Distribution Width 13.4 % (12.1-15.1); White Blood Count 7.75 10^3/uL (3.29-11.43)
[2024-06-17 15:09] LABS: Estmated Average Glucose 105; Hemoglobin A1C 5.3 % (4.0-6.0)
[2024-06-17 15:20] LABS: Alanine Aminotransferase 15 U/L (0-41); Albumin Level 3.6 g/dL (3.5-5.2); Alkaline Phosphatase 62 U/L (40-130); Aspartate Amino Transferase 12 U/L (0-40); Blood Urea Nitrogen 18 mg/dL (8-23); Calcium 9.5 mg/dL (8.5-10.5); Carbon Dioxide 23 mmol/L (22-29); Chloride 105 mmol/L (98-107); Chol HDL Ratio 1.84 mg/dL (1.0-5.00); Cholesterol 83 mg/dL (0-200); Globulin 2.8 g/dL (1.3-4.6); Glucose 131 mg/dL (65-115); HDL Cholesterol 45 mg/dL (60-100); LDL Cholesterol Calculated 25 mg/dL (50-129); Magnesium 1.9 mg/dL (1.7-2.3); Osmolality Calculated 294 mOsm/kg (285-295); Sodium 140 mmol/L (136-145); Thyroid Stimulating Hormone 0.69 uIU/mL (0.27-4.20); Total Bilirubin 0.6 mg/dL (0.15-1.2); Total Protein 6.4 g/dL (6.6-8.7); Triglycerides 65 mg/dL (0-150); VLDL Cholestrol Calculation 13 mg/dL (0-30); Vitamin B12 413 pg/mL (232-1245)
--- NOTE | 2024-06-17 15:44 | PC.NURSE ---
pt refused scd's
[2024-06-17] MEDS: atorvastatin 40 mg Tablet 80 MG PO (20:31)
[2024-06-18] MEDS: heparin 5,000 unit/mL INJ 1 mL 5000 UNIT SUBCUT ×2 (01:59→14:28)
[2024-06-18 04:00] VITALS: BP 112/72; PULSE 80; RESP 16; TEMP 36.4; O2SAT 98
[2024-06-18 04:49] LABS: Basophils # 0.1 10^3/uL (0.0-0.1); Basophils % 0.9 %; Eosinophils # 0.4 10^3/uL (0.0-0.8); Eosinophils % 4.6 %; Hematocrit 44.8 % (37-53); Lymphocytes # 1.3 10^3/uL (0.8-4.8); Lymphocytes % 14.6 %; Mean Corpuscular HGB Conc 32.1 g/dL (30-55); Mean Corpuscular Hemoglobin 29.6 pg (27-33); Monocytes # 0.9 10^3/uL (0.2-0.9); Monocytes % 10.1 %; Neutrophils # 6.24 10^3/uL (1.8-7.7); Neutrophils % 68.2 %; Nucleated Red Blood Cells % 0 %; Platelet Count 198 10^3/cmm (157-399); Red Blood Count 4.87 10^6/uL (3.85-5.65); Red Cell Distribution Width 13.6 % (12.1-15.1); White Blood Count 9.15 10^3/uL (3.29-11.43)
[2024-06-18 05:10] LABS: Blood Urea Nitrogen 20 mg/dL (8-23); Calcium 9.1 mg/dL (8.5-10.5); Carbon Dioxide 21 mmol/L (22-29); Chloride 106 mmol/L (98-107); Glucose 106 mg/dL (65-115); Osmolality Calculated 289 mOsm/kg (285-295); Sodium 138 mmol/L (136-145)
[2024-06-18 05:16] LABS: Anion Gap 15.2 (5-19); Potassium 4.2 mmol/L (3.5-5.1)
[2024-06-18 05:29] VITALS: PULSE 81
[2024-06-18 08:00] VITALS: BP 134/79; PULSE 79; RESP 17; TEMP 36.8; O2SAT 94
[2024-06-18] MEDS: aspirin 81 mg EC Tablet PO (08:53)
[2024-06-18] MEDS: clopidogrel 75 mg Tablet PO (08:53)
[2024-06-18 12:00] VITALS: BP 144/80; PULSE 82; RESP 18; TEMP 36.6; O2SAT 97
[2024-06-18 14:00] VITALS: BP 144/80; PULSE 82; RESP 18; TEMP 36.6
--- NOTE | 2024-06-18 15:31 | P.DS_ITS ---
Discharge Providers Date of Admission: 06/17/24 11:45 Date of Discharge: June 18, 2024 Attending Provider at Admission: Andra aMradiaga MD Attending Provider at Discharge: Lena Lee MD Primary Care Provider: Alejandro Sommers MD Diagnoses at Discharge Discharge Diagnosis (1) Obesity (BMI 30.0-34.9): Status: Acute (2) TIA involving left internal carotid artery: Status: Acute (3) Right sided weakness: Status: Acute Hospital Course Hospital Course Jagdish Bush is a 78 year old male with history of TIA who recently saw neurology on 06/05. He had previously had a TIA in April 2024. He complained of occipital Headaches for last 2 months which have not resolved. He presented as a direct admit on June 17, 2024 as a direct admit after presenting with symptoms of right-sided numbness over face, weakness over the right upper and lower extremities. Patient was still able to drive himself over to [facility] ER. There was concern for TIA. CT of the head was without any acute neurological findings. Patient underwent MRI of the brain which did not show any acute infarct. He underwent an echocardiogram which showed normal LVEF, systolic function and wall thickness without regional wall motion abnormalities. There was grade 1 diastolic dysfunction with normal to mildly elevated filling pressures. There was trace aortic valve regurgitation. He had recently seen neurology as an outpatient at which time he was ordered for a TSH which was normal at 0.69. CHUCK profile was +1 is to 80, cytoplasmic pattern. He had a CTA of the head and neck at [facility], records have been requested, pending at the time of this discharge. Carotid Doppler has not been ordered on this admission as he recently had a CTA of the head and neck. Patient's neuroexam at the time of discharge remained nonfocal. He is being discharged today in stable state with recommendations to continue aspirin 81 mg p.o. every day and Crestor 10 mg p.o. every day. Follow-up with neurology as recommended. Physical Exam Narrative: General: No acute distress, AO x3 HEENT: PERRLA, pupils bilaterally equal and reactive, pallors not present Chest: Normal vesicular breath sounds, no added sounds, equal good air entry bilaterally CVS: S1-S2 regular, no murmurs, no tachycardia, no gallops, no rubs Abdomen: Soft, nontender, no organomegaly, bowel sounds present Neuro: No focal deficits, no facial deformity, AO x3, power 5/5 in all limbs Discharge Data Studies Completed and Pending Completed Studies During Hospitalization Category Date Time Status MR head wo con* [id number] Routine MRI 06/17/24 14:12 Completed US echo complete [CV. echo complete* [id number]] Routine Ultrasound 06/17/24 14:12 Completed Radiology Impressions Head MRI 06/17/24 14:12 IMPRESSION: No acute infarct. Laboratory Results WBC 9.15 10^3/uL (3.29-11.43) 06/18/24 03:38 RBC 4.87 10^6/uL (3.85-5.65) 06/18/24 03:38 Hgb 14.40 g/dL (11.27-16.99) 06/18/24 03:38 Hct 44.8 % (37-53) 06/18/24 03:38 MCV 92.0 fl (82-101) 06/18/24 03:38 MCH 29.6 pg (27-33) 06/18/24 03:38 MCHC 32.1 g/dL (30-55) 06/18/24 03:38 RDW 13.6 % (12.1-15.1) 06/18/24 03:38 Plt Count 198 10^3/cmm (157-399) 06/18/24 03:38 MPV 10.0 fL (7.4-10.4) 06/18/24 03:38 Neut % (Auto) 68.2 % 06/18/24 03:38 Lymph % (Auto) 14.6 % 06/18/24 03:38 [place] % (Auto) 10.1 % 06/18/24 03:38 Eos % (Auto) 4.6 % 06/18/24 03:38 Baso % (Auto) 0.9 % 06/18/24 03:38 Neut # (Auto) 6.24 10^3/uL (1.8-7.7) 06/18/24 03:38 Lymph # (Auto) 1.3 10^3/uL (0.8-4.8) 06/18/24 03:38 [place] # (Auto) 0.9 10^3/uL (0.2-0.9) 06/18/24 03:38 Eos # (Auto) 0.4 10^3/uL (0.0-0.8) 06/18/24 03:38 Baso # (Auto) 0.1 10^3/uL (0.0-0.1) 06/18/24 03:38 Nucleated RBC % (auto) 0 % 06/18/24 03:38 Nucleated RBCs # 0.0 /100WBC 06/18/24 03:38 Sodium 138 mmol/L (136-145) 06/18/24 03:38 Potassium 4.2 mmol/L (3.5-5.1) 06/18/24 03:38 Chloride 106 mmol/L (98-107) 06/18/24 03:38 Carbon Dioxide 21 mmol/L (22-29) L 06/18/24 03:38 Anion Gap 15.2 (5-19) 06/18/24 03:38 BUN 20 mg/dL (8-23) 06/18/24 03:38 Creatinine 1.0 mg/dL (0.7-1.2) 06/18/24 03:38 GFR Calculation Not Reportable 06/18/24 03:38 Glucose 106 mg/dL (65-115) 06/18/24 03:38 Estimat Average Glucose 105 06/17/24 14:30 Hemoglobin A1c 5.3 % (4.0-6.0) 06/17/24 14:30 Calculated Osmolality 289 mOsm/kg (285-295) 06/18/24 03:38 Calcium 9.1 mg/dL (8.5-10.5) 06/18/24 03:38 Magnesium 1.9 mg/dL (1.7-2.3) 06/17/24 14:30 Total Bilirubin 0.6 mg/dL (0.15-1.2) 06/17/24 14:30 AST 12 U/L (0-40) 06/17/24 14:30 ALT 15 U/L (0-41) 06/17/24 14:30 Alkaline Phosphatase 62 U/L (40-130) 06/17/24 14:30 Total Protein 6.4 g/dL (6.6-8.7) L 06/17/24 14:30 Albumin 3.6 g/dL (3.5-5.2) 06/17/24 14:30 Globulin 2.8 g/dL (1.3-4.6) 06/17/24 14:30 Triglycerides 65 mg/dL (0-150) 06/17/24 14:30 Cholesterol 83 mg/dL (0-200) 06/17/24 14:30 LDL Cholesterol, Calc 25 mg/dL (50-129) L 06/17/24 14:30 Total VLDL Cholesterol 13 mg/dL (0-30) 06/17/24 14:30 HDL Cholesterol 45 mg/dL (60-100) L 06/17/24 14:30 Cholesterol/HDL Ratio 1.84 mg/dL (1.0-5.00) 06/17/24 14:30 Vitamin B12 413 pg/mL (232-1245) 06/17/24 14:30 TSH 0.69 uIU/mL (0.27-4.20) 06/17/24 14:30 Vitals Last Vital Signs Temp 97.9 F 06/18/24 12:00 Pulse 82 06/18/24 12:00 Resp 18 06/18/24 12:00 BP 144/80 06/18/24 12:00 Pulse Ox 97 06/18/24 12:00 O2 Del Method Room Air 06/18/24 12:00 Discharge Plan Discharge Patient Disposition: Home Condition: Stable Prescriptions: Continued rosuvastatin 10 mg tablet 10 mg PO DAILY Qty: 30 5RF cholecalciferol (vitamin D3) 1,250 mcg (50,000 unit) capsule 50,000 unit PO ONCE Qty: 14 3RF Rx Instructions: take 1 pill a week for vitamin d deficiency aspirin 81 mg capsule 81 mg PO DAILY Qty: 30 0RF Discharge Orders: Discharge Order (Routine); Ordered 06/18/24 Ordered By: Lena Lee Referrals: Alejandro Sommers MD [Primary Care Provider] - 07/12/24 3:30 pm Ole Vang MD [Physician] - 7-10 days Discharge Diet: Usual diet Discharge Activity: Resume usual activity Patient Instructions: Transient Ischemic Attack (DC), Opioid Safety Discharge Attestations Time Spent in Discharge Care*: greater than 30 min Quality Metrics Clinical Quality Measures [ No reported AMI, CVA or VTE this stay] Coding Level of Care Code Acute Code for Chg Fwd Diagnoses Obesity (BMI 30.0-34.9) E66.9 TIA involving left internal carotid artery G45.1 Right sided weakness R53.1
== END 2024-06-18 15:50 | disposition home or self-care (01) ==
PROVIDERS: Admitting Provider Internal Medicine; PCP Family Medicine; Visit Provider Student in an Organized Health Care Education/Training Program
DX: G45.1 Carotid artery syndrome (hemispheric) (principal); R53.1 Weakness; E66.9 Obesity, unspecified; Z68.34 Body mass index [BMI] 34.0-34.9, adult; Z86.73 Personal history of transient ischemic attack (TIA), and cerebral infarction without residual deficits; Z87.891 Personal history of nicotine dependence; Z91.199 Patient's noncompliance with other medical treatment and regimen due to unspecified reason; Z86.69 Personal history of other diseases of the nervous system and sense organs
CPT/HCPCS: 36415; 70551; 80048; 80053; 80061; 82607; 83036; 83735; 84443; 85025; 93306; 96372; 97161; G0378; G0379; J1644

== ENCOUNTER 2024-10-09 09:43 | Outpatient (CLI) | payer MEDICARE, SELFPAY | END 2024-10-09 09:44 | disposition home or self-care (01) | PROVIDERS: PCP Family Medicine; Visit Provider Family Medicine | DX: R91.8 Other nonspecific abnormal finding of lung field (principal); R06.02 Shortness of breath; R05.9 Cough, unspecified | CPT/HCPCS: 71046 ==

== ENCOUNTER → 2025-04-01 15:30 | Outpatient (BNVA) | payer MEDICARE, SELFPAY | PROVIDERS: PCP Family Medicine; Visit Provider Family Medicine | DX: I50.30 Unspecified diastolic (congestive) heart failure (principal); M19.90 Unspecified osteoarthritis, unspecified site; R03.0 Elevated blood-pressure reading, without diagnosis of hypertension; K21.9 Gastro-esophageal reflux disease without esophagitis; R05.3 Chronic cough | CPT/HCPCS: 80053; 80061; 85025 ==

== ENCOUNTER → 2025-09-16 08:37 | Outpatient (BNVA) | payer MEDICARE, SELFPAY | PROVIDERS: PCP Family Medicine | DX: R39.89 Other symptoms and signs involving the genitourinary system (principal) | CPT/HCPCS: 81000 ==